=== PATIENT | female | born 1960 | race Caucasian/White ===

== ENCOUNTER → 2016-04-13 | Outpatient (CLI) | payer BC ==
--- NOTE | 2016-04-13 15:10 | XR ---
EXAMINATION TYPE: XR shoulder complete BILAT DATE OF EXAM: 04/13/2016 12:01 PM COMPARISON: NONE HISTORY: Pain TECHNIQUE: Bilateral Shoulders examined in 3 views each. FINDINGS: The humeral head articulates with the glenoid. The acromio-clavicular junction is normal. No acute fractures or dislocations are evident. A follow up study can be performed 7-10 days from acute trauma for continued pain. IMPRESSION: 1. Normal bilateral shoulders
--- NOTE | 2016-04-13 15:13 | XR ---
EXAMINATION TYPE: XR Hip Bilateral and AP pelvis DATE OF EXAM: 04/13/2016 12:01 PM COMPARISON: NONE HISTORY: Bilateral hip pain TECHNIQUE: AP pelvis supplemented with bilateral hips. 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 The femoral head articulates with the acetabulum . Joint spaces are preserved. There is some acetabular spurring on the left. This appears to have a smoothly marginated fragment di stally. Old fracture is not excluded on the left. IMPRESSION: 1. May be an old acetabular spur fracture on the left. No acute osseous abnormality is evident. 2. CAM deformity right hip
== END ==
LOC: RADXRMAIN 11:21
PROVIDERS: ATTEND Family Medicine
DX: M25.519 Pain in unspecified shoulder (principal); M21.952 Unspecified acquired deformity of left thigh; M21.951 Unspecified acquired deformity of right thigh
CPT/HCPCS: 73521

== ENCOUNTER → 2016-04-15 | Outpatient (CLI) | payer BC ==
--- NOTE | 2016-04-15 15:57 | XR ---
EXAMINATION TYPE: XR knee limited LT DATE OF EXAM: 04/15/2016 3:43 PM COMPARISON: NONE TECHNIQUE: Two view submitted HISTORY: Post op FINDINGS: Postsurgical change appears in alignment. Small suprapatellar bursal fluid collection noted. Mild art hropathy. IMPRESSION: 1. Mild arthropathy.
== END ==
LOC: RADXRMAIN 15:24
PROVIDERS: ATTEND Family Medicine
DX: M17.12 Unilateral primary osteoarthritis, left knee (principal)

== ENCOUNTER → 2017-11-14 | Outpatient (CLI) | payer BC ==
--- NOTE | 2017-11-15 13:35 | CT ---
EXAMINATION TYPE: CT abdomen pelvis wo con DATE OF EXAM: 11/14/2017 COMPARISON: None HISTORY: Hematuria, bilateral flank pain and kidney infection CT DLP: 619.1 mGycm Automated exposure control for dose reduction was used. TECHNIQUE: Helical acquisition of images was performed from the lung bases through the pelvis. FINDINGS: LUNG BASES: No significant abnormality is appreciated. LIVER/GB: Unenhanced morphology is unremarkable. No cholelithiasis. PANCREAS: No ductal dilatation. SPLEEN: No significant abnormality is seen. ADRENALS: There is slight thickening of the left adrenal gland without focal nodularity. This maintai ns a normal adreniform shape and therefore likely relates to adrenal gland hyperplasia. KIDNEYS: There is no evidence of nephrolithiasis or hydronephrosis. No perinephric fluid collection o r perinephric fat stranding. No ureteral dilatation. No ureteral calculi or urinary bladder calculi. The urinary bladder displays circumferential urinary bladder wall thickening but is incompletely dist ended. Therefore this finding could relate to cystitis, neoplasm, or simply relate to incomplete dist ention. Correlate with urinalysis. FREE AIR: No free air is visualized ADENOPATHY: No greater than 1 cm short axis lymph node is seen within the abdomen or pelvis. REPRODUCTIVE ORGANS: No significant abnormality is seen OSSEOUS STRUCTURES: There are mild degenerative changes of the spine and femoral acetabular joints BOWEL: No large or small bowel dilatation. Appendix is air-filled and within normal limits. Few colo anna marie diverticula are noted at the hepatic and splenic flexures. No pericolonic fat stranding. OTHER: Mild atherosclerosis is seen of the abdominal aorta and its branches. IMPRESSION: 1. NO NEPHROLITHIASIS, HYDRONEPHROSIS OR PERINEPHRIC FLUID COLLECTION TO SUGGEST ABSCESS. 2. CIRCUMFERENTIAL URINARY BLADDER WALL THICKENING THAT COULD RELATE TO CYSTITIS, NEOPLASM, OR MORE L IKELY INCOMPLETE DISTENTION. GIVEN HEMATURIA IF THERE IS FURTHER CONCERN CT CYSTOGRAM OR DIRECT VISUA LIZATION COULD BE PERFORMED.
== END | disposition home or self-care (01) ==
LOC: RADCTMAIN 15:18
PROVIDERS: ATTEND Family Medicine
DX: R31.9 Hematuria, unspecified (principal); N32.89 Other specified disorders of bladder
CPT/HCPCS: 74176

== ENCOUNTER 2018-02-02 10:46 | Emergency (ER) | payer BC ==
[2018-02-02] MEDS ORDERED: HYDROmorphone 1 MG/ML 1 ML SYRINGE IVP STA (11:12)
[2018-02-02] MEDS ORDERED: SODIUM CHLORIDE 0.9% 1,000 ML IV STA (11:12)
[2018-02-02] MEDS ORDERED: ONDANSETRON 4 MG/2 ML VIAL IVP STA (11:12)
[2018-02-02 11:59] LABS: Appearance,Urine Clear (Clear); Bacteria,Urine Moderate /hpf; Bilirubin,Urine Negative (Negative); Blood,Urine Moderate (Negative); Color,Urine Light Yellow; Glucose,Urine (UA) Negative (Negative); Ketones,Urine Negative (Negative); Leukocyte Esterase,Urine Negative (Negative); Mucus,Urine Rare /hpf; Nitrite,Urine Negative (Negative); Protein,Urine Negative (Negative); RBC,Urine 6 /hpf (0-5); Specific Gravity,Urine 1.005 (1.001-1.035); Squamous Epithelial Cell,Urine <1 /hpf (0-4); Urobilinogen,Urine <2.0 mg/dL (<2.0)
[2018-02-02 12:01] LABS: Basophils % (A) 0 %; Eosinophils # (A) 0.1 k/uL (0-0.7); Eosinophils % (A) 1 %; HCT 39.6 % (34.0-46.0); HGB 13.6 gm/dL (11.4-16.0); Lymphocytes # (A) 2.2 k/uL (1.0-4.8); Lymphocytes % (A) 32 %; MCHC 34.5 g/dL (31.0-37.0); MCV 89.8 fL (80.0-100.0); Mean Platelet Volume 6.7; Monocytes # (A) 0.4 k/uL (0-1.0); Monocytes % (A) 5 %; Neutrophils # (A) 4.2 k/uL (1.3-7.7); Neutrophils % (A) 60 %; Platelet Count 302 k/uL (150-450); RBC 4.41 m/uL (3.80-5.40); RDW 12.8 % (11.5-15.5)
[2018-02-02 12:06] LABS: Albumin 4.3 g/dL (3.5-5.0); Calcium 10.1 mg/dL (8.4-10.2); Potassium 3.2 mmol/L (3.5-5.1); Total Bilirubin 0.6 mg/dL (0.2-1.3); Total Protein 7.1 g/dL (6.3-8.2)
[2018-02-02 12:16] LABS: Creatine Kinase 58 U/L (30-135)
--- NOTE | 2018-02-02 12:18 | ED ---
General Adult HPI - General Chief complaint: Abdominal Pain Stated complaint: Abd Pain Time Seen by Provider: 02/02/18 10:57 Source: patient, RN notes reviewed Mode of arrival: ambulatory Limitations: no limitations - History of Present Illness Initial comments: Patient 57-year-old female presented to the emergency room today with a chief complaint of abdominal pain over the last 3 months. Patient does admit that she saw her family physician today was advised coming here to the emergency room for further evaluation. Patient does admit that the pain is a loading type sensation that she feels in the upper abdomen. States worse after she eats. She does admit to symptoms of nausea vomiting diarrhea. Patient denies any other complaints or symptoms. Patient denies any recent fever, chills, shortness of breath, chest pain, numbness or tingling, dysuria or hematuria, constipation, headaches or visual changes, or any other complaints. - Related Data Home Medications Medication Instructions Recorded Confirmed Aspirin 325 mg PO DAILY 12/26/15 12/26/15 Celecoxib [CeleBREX] 200 mg PO BID 12/26/15 12/26/15 HYDROcodone/APAP 5-325MG [[place] 1 tab PO TID 12/26/15 12/26/15 5-325] Hydrochlorothiazide [Hydrodiuril] 25 mg PO DAILY 12/26/15 12/26/15 LORazepam [Ativan] 0.5 mg PO TID PRN 12/26/15 12/26/15 Pantoprazole Sodium [Protonix] 40 mg PO DAILY 12/26/15 12/26/15 Previous Rx's Medication Instructions Recorded Omeprazole 20 mg PO DAILY #20 capsule. 02/02/18 Ondansetron Odt [Zofran ODT] 4 mg PO Q8HR PRN #20 tab 02/02/18 Allergies Allergy/AdvReac Type Severity Reaction Status Date / Time No Known Allergies Allergy Verified 02/02/18 10:50 Review of Systems ROS Statement: Those systems with pertinent positive or pertinent negative responses have been documented in the HPI. ROS Other: All systems not noted in ROS Statement are negative. Past Medical History Past Medical History: Hypertension Additional Past Medical History / Comment(s): chronic hip pain History of Any Multi-Drug Resistant Organisms: None Reported Past Surgical History: No Surgical Hx Reported Past Psychological History: Anxiety Smoking Status: Current every day smoker Past Alcohol Use History: None Reported Past Drug Use History: None Reported General Exam - General Exam Comments Initial Comments: General: The patient is awake and alert, in no distress, and does not appear acutely ill. Eye: There is normal conjunctiva bilaterally. No signs of icterus. Ears, nose, mouth and throat: There are moist mucous membranes and no oral lesions. Neck: The neck is supple, there is no tenderness or JVD. Cardiovascular: There is a regular rate and rhythm. No murmur, rub or gallop is appreciated. Respiratory: Lungs are clear to auscultation, respirations are non-labored, breath sounds are equal. No wheezes, stridor, rales, or rhonchi. Gastrointestinal: Abdomen soft on palpation. Patient does have tenderness both the left and right upper quadrants along with epigastric. No rebound, guarding or CVA tenderness. Musculoskeletal: Normal ROM, no tenderness. . Neurological: A&O x 3. CN II-XII intact, There are no obvious motor or sensory deficits. Coordination appears grossly intact. Speech is normal. Skin: Skin is warm and dry and no rashes or lesions are noted. Psychiatric: Cooperative, appropriate mood & affect, normal judgment. Limitations: no limitations Course Vital Signs 02/02/18 02/02/18 10:48 11:50 Temperature 98.1 F Pulse Rate 78 64 Respiratory 20 20 Rate Blood Pressure 164/70 134/65 O2 Sat by Pulse 97 96 Oximetry Medical Decision Making - Medical Decision Making Patient reexamined at this time shows no signs of distress is resting comfortably. Her labs been reviewed that showed a potassium 3.2. Patient given potassium by mouth here in the emergency room. Patient's EKGs been reviewed shows normal sinus rhythm. No acute abnormality. Patient remained blood work reviewed. Liver enzymes and alk phos are negative. Patient's ultrasound reviewed does show Moderate hepatic steatosis. Shows positive Thomas sign on ultrasound no cholelithiasis or acute cholecystitis. Common bile duct is 5.7 up her limits of normal. Case discussed in detail with attending physician Dr. Leon. Patient is resting over at this time doing well. Patient will be discharged home with Zofran, omeprazole for symptoms and advised following up with the family doctor over the next 2 days. Also given on -call GI. Advised return if symptoms increase or worsen or for new concerns. - Lab Data Result diagrams: 02/02/18 11:40 12/24/18 11:40 Lab Results 02/02/18 02/02/18 02/02/18 Range/Units 11:40 11:40 11:40 WBC 7.0 (3.8-10.6) k/uL RBC 4.41 (3.80-5.40) m/uL Hgb 13.6 (11.4-16.0) gm/dL Hct 39.6 (34.0-46.0) % MCV 89.8 (80.0-100.0) fL MCH 31.0 (25.0-35.0) pg MCHC 34.5 (31.0-37.0) g/dL RDW 12.8 (11.5-15.5) % Plt Count 302 (150-450) k/uL Neutrophils % 60 % Lymphocytes % 32 % Monocytes % 5 % Eosinophils % 1 % Basophils % 0 % Neutrophils # 4.2 (1.3-7.7) k/uL Lymphocytes # 2.2 (1.0-4.8) k/uL Monocytes # 0.4 (0-1.0) k/uL Eosinophils # 0.1 (0-0.7) k/uL Basophils # 0.0 (0-0.2) k/uL PT (9.0-12.0) sec INR (<1.2) APTT (22.0-30.0) sec Sodium 138 (137-145) mmol/L Potassium 3.2 L (3.5-5.1) mmol/L Chloride 98 (98-107) mmol/L Carbon Dioxide 32 H (22-30) mmol/L Anion Gap 8 mmol/L BUN 11 (7-17) mg/dL Creatinine 0.85 (0.52-1.04) mg/dL Est GFR (CKD-EPI)AfAm 88 (>60 ml/min/1.73 sqM) Est GFR (CKD-EPI)NonAf 76 (>60 ml/min/1.73 sqM) Glucose 106 H (74-99) mg/dL Calcium 10.1 (8.4-10.2) mg/dL Total Bilirubin 0.6 (0.2-1.3) mg/dL AST 13 L (14-36) U/L ALT 24 (9-52) U/L Alkaline Phosphatase 82 (38-126) U/L Total Creatine Kinase 58 (30-135) U/L CK-MB (CK-2) 0.3 (0.0-2.4) ng/mL CK-MB (CK-2) Rel Index 0.5 Troponin I <0.012 (0.000-0.034) ng/mL Total Protein 7.1 (6.3-8.2) g/dL Albumin 4.3 (3.5-5.0) g/dL Amylase 56 (30-110) U/L Lipase 56 (23-300) U/L Urine Color Urine Appearance (Clear) Urine pH (5.0-8.0) Ur Specific [place] (1.001-1.035) Urine Protein (Negative) Urine Glucose (UA) (Negative) Urine Ketones (Negative) Urine Blood (Negative) Urine Nitrite (Negative) Urine Bilirubin (Negative) Urine Urobilinogen (<2.0) mg/dL Ur Leukocyte Esterase (Negative) Urine RBC (0-5) /hpf Urine WBC (0-5) /hpf Ur Squamous Epith Cells (0-4) /hpf Urine Bacteria (None) /hpf Urine Mucus (None) /hpf 02/02/18 02/02/18 Range/Units 11:40 11:40 WBC (3.8-10.6) k/uL RBC (3.80-5.40) m/uL Hgb (11.4-16.0) gm/dL Hct (34.0-46.0) % MCV (80.0-100.0) fL MCH (25.0-35.0) pg MCHC (31.0-37.0) g/dL RDW (11.5-15.5) % Plt Count (150-450) k/uL Neutrophils % % Lymphocytes % % Monocytes % % Eosinophils % % Basophils % % Neutrophils # (1.3-7.7) k/uL Lymphocytes # (1.0-4.8) k/uL Monocytes # (0-1.0) k/uL Eosinophils # (0-0.7) k/uL Basophils # (0-0.2) k/uL PT 10.5 (9.0-12.0) sec INR 1.0 (<1.2) APTT 27.5 (22.0-30.0) sec Sodium (137-145) mmol/L Potassium (3.5-5.1) mmol/L Chloride (98-107) mmol/L Carbon Dioxide (22-30) mmol/L Anion Gap mmol/L BUN (7-17) mg/dL Creatinine (0.52-1.04) mg/dL Est GFR (CKD-EPI)AfAm (>60 ml/min/1.73 sqM) Est GFR (CKD-EPI)NonAf (>60 ml/min/1.73 sqM) Glucose (74-99) mg/dL Calcium (8.4-10.2) mg/dL Total Bilirubin (0.2-1.3) mg/dL AST (14-36) U/L ALT (9-52) U/L Alkaline Phosphatase (38-126) U/L Total Creatine Kinase (30-135) U/L CK-MB (CK-2) (0.0-2.4) ng/mL CK-MB (CK-2) Rel Index Troponin I (0.000-0.034) ng/mL Total Protein (6.3-8.2) g/dL Albumin (3.5-5.0) g/dL Amylase (30-110) U/L Lipase (23-300) U/L Urine Color Light Yellow Urine Appearance Clear (Clear) Urine pH 7.0 (5.0-8.0) Ur Specific [place] 1.005 (1.001-1.035) Urine Protein Negative (Negative) Urine Glucose (UA) Negative (Negative) Urine Ketones Negative (Negative) Urine Blood Moderate H (Negative) Urine Nitrite Negative (Negative) Urine Bilirubin Negative (Negative) Urine Urobilinogen <2.0 (<2.0) mg/dL Ur Leukocyte Esterase Negative (Negative) Urine RBC 6 H (0-5) /hpf Urine WBC <1 (0-5) /hpf Ur Squamous Epith Cells <1 (0-4) /hpf Urine Bacteria Moderate H (None) /hpf Urine Mucus Rare H (None) /hpf Disposition Clinical Impression: Abdominal pain Disposition: HOME SELF-CARE Condition: Good Instructions: Abdominal Pain (ED) Additional Instructions: Please use medication as discussed. Please follow-up with GI/family doctor in the next 2 days of symptoms have not improved. Please return to emergency room if the symptoms increase or worsen or for any other concerns. Prescriptions: Omeprazole 20 mg PO DAILY #20 capsule. Ondansetron Odt [Zofran ODT] 4 mg PO Q8HR PRN #20 tab PRN Reason: Nausea Is patient prescribed a controlled substance at d/c from ED?: No Referrals: Michael Marin MD [Primary Care Provider] - 1-2 days Nevaeh Rogers MD [STAFF PHYSICIAN] - 1-2 days Time of Disposition: 13:18
[2018-02-02 12:26] LABS: Creatine Kinase MB 0.3 ng/mL (0.0-2.4)
[2018-02-02 12:28] LABS: Partial Thromboplastin Time 27.5 sec (22.0-30.0); Prothrombin Time 10.5 sec (9.0-12.0)
[2018-02-02 12:30] LABS: Troponin I <0.012 ng/mL (0.000-0.034)
--- NOTE | 2018-02-02 12:49 | US ---
EXAMINATION TYPE: US abdomen limited DATE OF EXAM: 02/02/2018 COMPARISON: 11/14/2017 CLINICAL HISTORY: 57-year-old female Pain. Epigastric pain, bloating TECHNIQUE: Multiple sonographic images of the right upper quadrant are obtained. FINDINGS: EXAM MEASUREMENTS: Liver Length: 14.8 cm Gallbladder Wall: 0.2 cm CBD: 5.7 mm Right Kidney: 9.6 x 4.8 x 4.6 cm Pancreas: Most of the pancreatic body is visualized and shows no gross abnormality. The remainder is obscured due to shadowing from bowel gas. Liver: Echogenic and attenuating. This secondarily limits assessment for focal lesion. Gallbladder: No abnormal distention, wall thickening, pericholecystic fluid, or shadowing calculi. Evidence for sonographic Thomas's sign: Yes CBD: Upper limits of normal Right Kidney: No hydronephrosis. IMPRESSION: 1. At least moderate hepatic steatosis. Correlate with LFTs, lipid profile, and patient risk factors. 2. Positive sonographic Thomas's sign but without ancillary findings of cholelithiasis or acute dario cystitis. This may reflect referred pain. If further imaging evaluation of the gallbladder is desired , HIDA scan with ejection fraction can be performed. 3. Bile duct at the upper limits of normal in caliber at 5.7 mm. This may be normal for the patient. Consider correlating with alkaline phosphatase and bilirubin levels.
[2018-02-02] MEDS ORDERED: POTASSIUM CHLORIDE ER 20 MEQ TAB.ER PO STA (13:11)
[2018-02-02 13:25] VITALS: BP 148/73; PULSE 71; RESP 16; TEMP 98.2
== END 2018-02-02 13:25 | disposition home or self-care (01) ==
LOC: EC 10:46
DX: K76.0 Fatty (change of) liver, not elsewhere classified (principal); R11.2 Nausea with vomiting, unspecified; R19.7 Diarrhea, unspecified; I10 Essential (primary) hypertension; F17.200 Nicotine dependence, unspecified, uncomplicated; Z79.82 Long term (current) use of aspirin; Z79.1 Long term (current) use of non-steroidal anti-inflammatories (NSAID); Z79.891 Long term (current) use of opiate analgesic; Z79.899 Other long term (current) drug therapy
CPT/HCPCS: 36415; 93005; 80053; 82150; 82550; 82553; 83690; 84484; 85025; 85610; 85730; 81001; 76705; 99284; 96374; 96375; 96361 ×2; J2405; J1170

== ENCOUNTER → 2019-07-30 | Outpatient (CLI) | payer BC ==
--- NOTE | 2019-07-30 10:05 | US ---
EXAMINATION TYPE: US venous doppler duplex LE RT DATE OF EXAM: 07/30/2019 9:47 AM COMPARISON: NONE CLINICAL HISTORY: M25.561 PAIN RT KNEE, I80.9 PHLEBITIS AND THROMBOPHLEBITIS. Pain SIDE PERFORMED: Right TECHNIQUE: The lower extremity deep venous system is examined utilizing real time linear array sonog cristian with graded compression, doppler sonography and color-flow sonography. VESSELS IMAGED: External Iliac Vein (EIV) Common Femoral Vein Deep Femoral Vein Greater Saphenous Vein * Femoral Vein Popliteal Vein Small Saphenous Vein * Proximal Calf Veins (* superficial vessels) Right Leg: Negative for DVT IMPRESSION: 1. Right lower extremity ultrasound negative for deep venous thrombosis.
== END | disposition home or self-care (01) ==
LOC: RADUSWWP 09:33
PROVIDERS: ATTEND Orthopaedic Surgery
DX: M25.561 Pain in right knee (principal); M17.11 Unilateral primary osteoarthritis, right knee; M79.604 Pain in right leg; I80.9 Phlebitis and thrombophlebitis of unspecified site

== ENCOUNTER 2019-09-17 16:33 | Inpatient (IN) | payer BC ==
[2019-09-17] MEDS ORDERED: SODIUM CHLORIDE 0.9% 1,000 ML IV STA ×2 (16:50→18:49)
--- NOTE | 2019-09-17 16:52 | ED ---
Abdominal Pain HPI - General Chief Complaint: Abdominal Pain Stated Complaint: needs ultasound of gallbladder Time Seen by Provider: 09/17/19 16:48 Source: patient Mode of arrival: ambulatory Limitations: no limitations - Related Data Home Medications Medication Instructions Recorded Confirmed Aspirin 325 mg PO DAILY 12/26/15 12/26/15 Celecoxib [CeleBREX] 200 mg PO BID 12/26/15 12/26/15 HYDROcodone/APAP 5-325MG [[place] 1 tab PO TID 12/26/15 12/26/15 5-325] LORazepam [Ativan] 0.5 mg PO TID PRN 12/26/15 12/26/15 Pantoprazole Sodium [Protonix] 40 mg PO DAILY 12/26/15 12/26/15 hydroCHLOROthiazide [Hydrodiuril] 25 mg PO DAILY 12/26/15 12/26/15 Previous Rx's Medication Instructions Recorded Omeprazole 20 mg PO DAILY #20 capsule. 02/02/18 Ondansetron Odt [Zofran ODT] 4 mg PO Q8HR PRN #20 tab 02/02/18 Allergies Allergy/AdvReac Type Severity Reaction Status Date / Time No Known Allergies Allergy Verified 09/17/19 16:47 Review of Systems ROS Statement: Those systems with pertinent positive or pertinent negative responses have been documented in the HPI. ROS Other: All systems not noted in ROS Statement are negative. Past Medical History Past Medical History: Hypertension Additional Past Medical History / Comment(s): chronic hip pain History of Any Multi-Drug Resistant Organisms: None Reported Past Surgical History: No Surgical Hx Reported Past Psychological History: Anxiety Past Alcohol Use History: None Reported Past Drug Use History: None Reported General Exam Limitations: no limitations Course Vital Signs 09/17/19 16:45 Temperature 98.3 F Pulse Rate 85 Respiratory 16 Rate Blood Pressure 158/79 O2 Sat by Pulse 97 Oximetry Medical Decision Making - Lab Data Result diagrams: 09/17/19 17:45 09/17/19 17:45 Lab Results 09/17/19 09/17/19 09/17/19 Range/Units 17:45 17:45 17:45 WBC 8.5 (3.8-10.6) k/uL RBC 4.30 (3.80-5.40) m/uL Hgb 12.5 (11.4-16.0) gm/dL Hct 37.5 (34.0-46.0) % MCV 87.0 (80.0-100.0) fL MCH 29.1 (25.0-35.0) pg MCHC 33.5 (31.0-37.0) g/dL RDW 12.7 (11.5-15.5) % Plt Count 326 (150-450) k/uL Neutrophils % 55 % Lymphocytes % 35 % Monocytes % 7 % Eosinophils % 1 % Basophils % 1 % Neutrophils # 4.6 (1.3-7.7) k/uL Lymphocytes # 3.0 (1.0-4.8) k/uL Monocytes # 0.6 (0-1.0) k/uL Eosinophils # 0.1 (0-0.7) k/uL Basophils # 0.1 (0-0.2) k/uL Sodium 126 L (137-145) mmol/L Potassium 2.7 L* (3.5-5.1) mmol/L Chloride 90 L (98-107) mmol/L Carbon Dioxide 28 (22-30) mmol/L Anion Gap 8 mmol/L BUN 4 L (7-17) mg/dL Creatinine 0.64 (0.52-1.04) mg/dL Est GFR (CKD-EPI)AfAm >90 (>60 ml/min/1.73 sqM) Est GFR (CKD-EPI)NonAf >90 (>60 ml/min/1.73 sqM) Glucose 92 (74-99) mg/dL Plasma Lactic Acid [place] 0.7 (0.7-2.0) mmol/L Calcium 9.4 (8.4-10.2) mg/dL Total Bilirubin 0.8 (0.2-1.3) mg/dL AST 22 (14-36) U/L ALT 22 (4-34) U/L Alkaline Phosphatase 77 (38-126) U/L Total Protein 6.2 L (6.3-8.2) g/dL Albumin 4.1 (3.5-5.0) g/dL Amylase 38 (30-110) U/L Lipase 41 (23-300) U/L Disposition Clinical Impression: Abdominal pain, Hyponatremia, Hypokalemia Disposition: ADMITTED IP TO THIS [facility] Condition: Good Is patient prescribed a controlled substance at d/c from ED?: No Referrals: Michael Marin MD [Primary Care Provider] - 1-2 days
[2019-09-17 17:55] LABS: Basophils # (A) 0.1 k/uL (0-0.2); Basophils % (A) 1 %; Eosinophils # (A) 0.1 k/uL (0-0.7); Eosinophils % (A) 1 %; HCT 37.5 % (34.0-46.0); HGB 12.5 gm/dL (11.4-16.0); Lymphocytes % (A) 35 %; MCH 29.1 pg (25.0-35.0); MCHC 33.5 g/dL (31.0-37.0); Mean Platelet Volume 7.1; Monocytes # (A) 0.6 k/uL (0-1.0); Monocytes % (A) 7 %; Neutrophils # (A) 4.6 k/uL (1.3-7.7); Neutrophils % (A) 55 %; Platelet Count 326 k/uL (150-450); RDW 12.7 % (11.5-15.5); WBC 8.5 k/uL (3.8-10.6)
[2019-09-17 18:05] LABS: ALT 22 U/L (4-34); AST 22 U/L (14-36); African American GFR (CKD) >90 (>60 ml/min/1.73 sqM); Albumin 4.1 g/dL (3.5-5.0); Alkaline Phosphatase 77 U/L (38-126); Amylase 38 U/L (30-110); Anion Gap 8 mmol/L; Blood Urea Nitrogen 4 mg/dL (7-17); Calcium 9.4 mg/dL (8.4-10.2); Carbon Dioxide 28 mmol/L (22-30); Chloride 90 mmol/L (98-107); Glucose 92 mg/dL (74-99); Non-African American GFR(CKD) >90 (>60 ml/min/1.73 sqM); Sodium 126 mmol/L (137-145); Total Bilirubin 0.8 mg/dL (0.2-1.3); Total Protein 6.2 g/dL (6.3-8.2)
[2019-09-17 18:17] LABS: Potassium 2.7 mmol/L (3.5-5.1)
--- NOTE | 2019-09-17 18:31 | US ---
EXAMINATION TYPE: US gallbladder DATE OF EXAM: 09/17/2019 COMPARISON: 02/02/2018 CLINICAL HISTORY: pain. abd pain, second episdoe since April EXAM MEASUREMENTS: Liver Length: 14.8 cm Gallbladder Wall: 0.2 cm CBD: 0.8 cm Right Kidney: 10.0 x 4.7 x 5.1 cm Pancreas: wnl Liver: intercostal imaging due to extensive bowel gas Gallbladder: no obvious stones seen Evidence for sonographic Thomas's sign: no CBD: upper limits of normal Right Kidney: wnl IMPRESSION: No gallstones or dilated ducts. Intrahepatic bile ducts normal. The common bile duct is large and cou ld relate to some gallbladder dysfunction. Overall no adverse change compared to old exam.
[2019-09-17] MEDS ORDERED: ONDANSETRON 4 MG/2 ML VIAL IVP PRN (18:49)
[2019-09-17] MEDS ORDERED: KETOROLAC 30 MG/ML 1 ML VIAL IVP STA (18:49)
[2019-09-17] MEDS ORDERED: ONDANSETRON 4 MG/2 ML VIAL IVP STA (18:49)
[2019-09-17] MEDS ORDERED: MORPHINE SULFATE 4 MG/ML SYRINGE IVP STA (18:49)
[2019-09-17] MEDS ORDERED: MORPHINE SULFATE 4 MG/ML SYRINGE IVP PRN (18:49)
[2019-09-17] MEDS ORDERED: POTASSIUM BICARBONATE/CIT AC 20 MEQ TABLET.EFF PO ONE (18:49)
[2019-09-17] MEDS ORDERED: POTASSIUM CHLORIDE 20 MEQ in WATER FOR INJECTION 1 100ML.BAG IVPB STA (18:49)
[2019-09-17] MEDS ORDERED: PANTOPRAZOLE 40 MG/10 ML VIAL IVP STA (18:49)
--- NOTE | 2019-09-17 19:24 | CT ---
EXAMINATION TYPE: CT abdomen pelvis w con DATE OF EXAM: 09/17/2019 COMPARISON: 11/14/2017 HISTORY: Abdominal pain CT DLP: 1169.1 mGycm Automated exposure control for dose reduction was used. CONTRAST: Performed with IV Contrast, patient injected with 100 mL of Isovue 300. Lung bases are clear. There is no pleural effusion. Heart size is normal. There is no pericardial eff usion. Liver spleen pancreas gallbladder appear normal. Bile ducts are not dilated. Stomach appears normal. There is no adrenal mass. Kidneys show satisfactory contrast opacification. There is no hydronephrosi s. Ureters are not dilated. There is no retroperitoneal adenopathy. Abdominal aorta is atheromatous. Appendix is posterior and appears normal. Bladder distends smoothly. There is no inguinal hernia. The re is no free fluid in the pelvis. Uterus is anteverted. Lumbar spine is intact. There is no compress ion fracture. Posterior elements are intact. Bony pelvis is intact. There is mild hypertrophic facet arthropathy in the lower lumbar spine. Hip joints appear normal. There is no mesenteric edema. There is no ascites or free air. There is no bowel obstruction. IMPRESSION: Negative CT scan of the abdomen and pelvis. Normal appendix. I do not see a cause for abdominal pain. There are scattered sigmoid diverticula without diverticulitis. No adverse change compared to old exam.
[2019-09-17] MEDS ORDERED: LORazepam 0.5 MG TAB PO PRN (21:40)
[2019-09-17] MEDS: SODIUM CHLORIDE 0.9% 1,000 ML IV SCH (21:56)
[2019-09-18 07:19] LABS: HCT 36.8 % (34.0-46.0); HGB 12.4 gm/dL (11.4-16.0); MCH 30.6 pg (25.0-35.0); MCHC 33.7 g/dL (31.0-37.0); MCV 90.6 fL (80.0-100.0); Platelet Count 324 k/uL (150-450); RBC 4.07 m/uL (3.80-5.40); RDW 12.9 % (11.5-15.5); WBC 6.4 k/uL (3.8-10.6)
[2019-09-18] MEDS ORDERED: MELOXICAM 7.5 MG TAB PO SCH (09:00)
[2019-09-18] MEDS ORDERED: PANTOPRAZOLE 40 MG TABLET PO SCH (09:00)
[2019-09-18] MEDS: SODIUM CHLORIDE 0.9% 1,000 ML IV SCH (09:05)
[2019-09-18 09:42] LABS: African American GFR (CKD) >90 (>60 ml/min/1.73 sqM); Anion Gap 6 mmol/L; Blood Urea Nitrogen 7 mg/dL (7-17); Calcium 8.8 mg/dL (8.4-10.2); Carbon Dioxide 29 mmol/L (22-30); Chloride 98 mmol/L (98-107); Glucose 113 mg/dL (74-99); Non-African American GFR(CKD) 84 (>60 ml/min/1.73 sqM); Potassium 3.9 mmol/L (3.5-5.1); Sodium 133 mmol/L (137-145)
[2019-09-18 09:46] VITALS: RESP 17; TEMP 98.1
[2019-09-18 12:46] VITALS: BP 112/68; PULSE 62
--- NOTE | 2019-09-18 13:35 | P.HPIM ---
History of Present Illness Patient is a 59-year-old female was sent in from PCPs office with concerns of cholelithiasis patient was comparing of right upper quadrant abdominal pain along with nausea. Patient did not vomit. Patient pain is mostly burning sens ation and and sharp in nature. They had abdominal pain completely resolved at this time. Patient is on Protonix twice a day at home. Patient denied any hiatal hernia history. Patient underwent workup with ultrasound of the gallbladder as well as CT of the abdomen both of which did not show any s ignificant abnormality. But patient is found to be severely hyponatremic and hypokalemic. Patient blood pressure is low normal as well and the patient is on HCl for blood pressure. Patient was given IV fluids and potassium was replaced and patient's electrolyte's were corrected. Her hyponatremia and hypokalemia secondary to hydrochlorothiazide which is being discontinued and patient will be discharged today Review of Systems REVIEW OF SYSTEMS: CONSTITUTIONAL: No fever, no malaise, no fatigue. HEENT: No recent visual problems or hearing problems. Denied any sore throat. CARDIOVASCULAR: No chest pain, orthopnea, PND, no palpitations, no syncope. PULMONARY: No shortness of breath, no cough, no hemoptysis. GASTROINTESTINAL: As mentioned in HPI NEUROLOGICAL: No headaches, no weakness, no numbness. HEMATOLOGICAL: Denies any bleeding or petechiae. GENITOURINARY: Denies any burning micturition, frequency, or urgency. MUSCULOSKELETAL/RHEUMATOLOGICAL: Denies any joint pain, swelling, or any muscle pain. ENDOCRINE: Denies any polyuria or polydipsia. The rest of the 14-point review of systems is negative. Past Medical History Past Medical History: Hypertension Additional Past Medical History / Comment(s): chronic hip pain History of Any Multi-Drug Resistant Organisms: None Reported Past Surgical History: No Surgical Hx Reported, Section, Tonsillectomy Past Anesthesia/Blood Transfusion Reactions: Postoperative Nausea & Vomiting (PONV) Past Psychological History: Anxiety Smoking Status: Current every day smoker Past Alcohol Use History: None Reported Past Drug Use History: None Reported Medications and Allergies Home Medications Medication Instructions Recorded Confirmed Type Celecoxib [CeleBREX] 200 mg PO BID 12/26/15 09/17/19 History Pantoprazole Sodium [Protonix] 40 mg PO BID 12/26/15 09/17/19 History Simethicone Chew [Mylicon Chew] 40 mg PO QID #90 chewable 09/18/19 Rx Allergies Allergy/AdvReac Type Severity Reaction Status Date / Time No Known Allergies Allergy Verified 09/17/19 19:32 Physical Exam Vitals: Vital Signs Temp Pulse Pulse Resp BP BP Pulse Ox 09/18/19 12:45 62 17 112/68 97 09/18/19 08:30 98.1 F 69 17 114/70 96 09/18/19 04:00 98.3 F 62 16 100/63 96 09/17/19 23:47 66 18 09/17/19 23:41 98.1 F 66 18 105/67 96 09/17/19 21:24 97.8 F 60 18 137/69 95 09/17/19 21:21 60 18 09/17/19 20:37 97.8 F 60 18 137/69 95 09/17/19 19:56 98.3 F 78 17 138/91 96 09/17/19 18:52 68 17 138/69 97 09/17/19 16:45 98.3 F 85 16 158/79 97 Intake and Output 09/17/19 09/18/19 09/18/19 22:59 06:59 14:59 Intake Total 240 240 Balance 240 240 Intake: Oral 240 240 Other: Voiding Method Toilet Toilet # Voids 2 3 Weight 87.09 kg 85.8 kg PHYSICAL EXAMINATION: GENERAL: The patient is alert and oriented x3, not in any acute distress. Well developed, well nourished. HEENT: Pupils are round and equally reacting to light. EOMI. No scleral icterus. No conjunctival pallor. Normocephalic, atraumatic. No pharyngeal erythema. No thyromegaly. CARDIOVASCULAR: S1 and S2 present. No murmurs, rubs, or gallops. PULMONARY: Chest is clear to auscultation, no wheezing or crackles. ABDOMEN: Soft, nontender, nondistended, normoactive bowel sounds. No palpable organomegaly. MUSCULOSKELETAL: No joint swelling or deformity. EXTREMITIES: No cyanosis, clubbing, or pedal edema. NEUROLOGICAL: Gross neurological examination did not reveal any focal deficits. SKIN: No rashes. Results CBC & Chem 7: 09/18/19 06:21 09/18/19 06:21 Labs: Abnormal Lab Results - Last 24 Hours (Table) 09/17/19 09/18/19 Range/Units 17:45 06:21 Sodium 126 L 133 L (137-145) mmol/L Potassium 2.7 L* (3.5-5.1) mmol/L Chloride 90 L (98-107) mmol/L BUN 4 L (7-17) mg/dL Glucose 113 H (74-99) mg/dL Total Protein 6.2 L (6.3-8.2) g/dL Thrombosis Risk Factor Assmnt - Choose All That Apply Any of the Below Risk Factors Present?: Yes Each Factor Represents 1 point: Age 41-60 years Other Risk Factors: No Other congenital or acquired thrombophilia - If yes, enter type in comment: No Thrombosis Risk Factor Assessment Total Risk Factor Score: 1 Thrombosis Risk Factor Assessment Level: Low Risk Assessment and Plan Plan: -Abdominal pain probably secondary to peptic is a disease or gastritis Patient is already on Protonix, will add simethicone. Patient will follow with Dr. Marin PCP as an outpatient. No evidence of cholelithiasis or cholecystitis at this time -Severe hyponatremia and hypokalemia: Secondary to hydrocodone thiazide patient blood pressure is low here and patient will not require any antidepressant medications but patient was asked to get a blood pressure machine and check the blood pressure 3 times a day and maintain blood pressure diary. -Frequent headaches: Patient may have migraine will benefit from further evaluation by neurology -Nicotine abuse: Counseling was provided -Anxiety disorder
--- NOTE | 2019-09-18 13:35 | P.DS ---
Providers Date of admission: 09/17/19 18:49 Attending physician: Austin Cleaning Primary care physician: Michael Marin Hospital Course: Please refer to my HPI for further details Patient Condition at Discharge: Good Plan - Discharge Summary Discharge Rx Participant: No New Discharge Prescriptions: New Simethicone Chew [Mylicon Chew] 40 mg PO QID #90 chewable Discontinued LORazepam [Ativan] 0.5 mg PO TID PRN PRN Reason: Anxiety hydroCHLOROthiazide [Hydrodiuril] 25 mg PO BID Aspirin 325 mg PO DAILY No Action Pantoprazole Sodium [Protonix] 40 mg PO BID Celecoxib [CeleBREX] 200 mg PO BID Discharge Medication List Celecoxib [CeleBREX] 200 mg PO BID 12/26/15 [History] Pantoprazole Sodium [Protonix] 40 mg PO BID 12/26/15 [History] Simethicone Chew [Mylicon Chew] 40 mg PO QID #90 chewable 09/18/19 [Rx] Follow up Appointment(s)/Referral(s): Michael Marin MD [Primary Care Provider] - 3 Days Patient Instructions/Handouts: Hyponatremia (DC), Hypokalemia (DC), Acute Abdominal Pain (DC) Discharge Disposition: HOME SELF-CARE
== END 2019-09-18 13:13 | disposition home or self-care (01) | DRG 384 ==
LOC: EC 16:33 → 3SCARD 18:49
PROVIDERS: ADMIT Hospitalist; ATTEND Hospitalist
DX: K27.9 Peptic ulcer, site unspecified, unspecified as acute or chronic, without hemorrhage or perforation (principal); E87.1 Hypo-osmolality and hyponatremia; K29.70 Gastritis, unspecified, without bleeding; E87.6 Hypokalemia; I10 Essential (primary) hypertension; G89.29 Other chronic pain; M25.559 Pain in unspecified hip; R51 Headache; F41.9 Anxiety disorder, unspecified; F17.200 Nicotine dependence, unspecified, uncomplicated; T50.2X5A Adverse effect of carbonic-anhydrase inhibitors, benzothiadiazides and other diuretics, initial encounter; Z79.82 Long term (current) use of aspirin; Z79.1 Long term (current) use of non-steroidal anti-inflammatories (NSAID); Z79.899 Other long term (current) drug therapy
CPT/HCPCS: 36415; 74177; 76705; 80048; 80053; 82150; 83605; 83690; 85025; 85027; 96361; 96374; 96375; 99285

== ENCOUNTER → 2021-01-29 | Outpatient (CLI) | payer BC ==
--- NOTE | 2021-01-30 11:56 | MM ---
Reason for exam: screening (asymptomatic). Last mammogram was performed 5 years and 3 months ago. History: Patient is postmenopausal and had first child at age 33. Physical Findings: A clinical breast exam by your physician is recommended on an annual basis and results should be correlated with mammographic findings. MG 3D Screening Mammo W/Cad Bilateral CC and MLO view(s) were taken. Prior study comparison: November 06, 2015, bilateral MG screening mammo w CAD. October 17, 2000, bilateral screening mammogram. The breast tissue is almost entirely fat. Finding: There are questionable indeterminate calcifications in the lower outer quadrant of the right breast. ASSESSMENT: Incomplete: need additional imaging evaluation, BI-RAD 0 RECOMMENDATION: Special view mammogram of the right breast. [facility] will attempt to contact patient to return for supplemental views.
== END | disposition home or self-care (01) ==
LOC: RADMAMWWP 14:23
PROVIDERS: ATTEND Family Medicine
DX: Z12.31 Encounter for screening mammogram for malignant neoplasm of breast (principal)
CPT/HCPCS: 77063; 77067

== ENCOUNTER → 2021-02-06 | Outpatient (CLI) | payer BC ==
--- NOTE | 2021-02-06 10:29 | MM ---
Reason for exam: additional evaluation requested from abnormal screening. Last mammogram was performed less than 1 month ago. History: Patient is postmenopausal and had first child at age 33. Physical Findings: Nurse did not find any significant physical abnormalities on exam. MG 3D Work Up W/Cad RT CC with magnification, LM with magnification, and LM view(s) were taken of the right breast. Prior study comparison: January 29, 2021, bilateral MG 3d screening mammo w/cad. November 06, 2015, bilateral MG screening mammo w CAD. There are scattered fibroglandular densities. 9 o'clock right breast calcifications are grouped and appear increased but may layer on lateral suggesting benign milk of calcium. 6 month follow up recommended. These results were verbally communicated with the patient and result sheet given to the patient on 02/06/21. ASSESSMENT: Probably benign, BI-RAD 3 RECOMMENDATION: Follow-up diagnostic mammogram of the right breast in 6 months.
== END | disposition home or self-care (01) ==
LOC: RADMAMWWP 08:10
PROVIDERS: ATTEND Family Medicine
DX: R92.8 Other abnormal and inconclusive findings on diagnostic imaging of breast (principal)
CPT/HCPCS: 77061; 77065

== ENCOUNTER → 2021-05-08 | Day surgery (SDC) | payer BC ==
[2021-05-03 16:25] VITALS: BMI 33.3
[~2021-05-08] MED LIST: LACTATED RINGERS 1,000 ML IV SCH; LIDOCAINE 1% INJ 10MG/ML (20 ML MDV) ONE; PROPOFOL 10 MG/ML 20 ML VIAL IV ONE
--- NOTE | 2021-05-08 07:52 | P.PCN ---
Date of Procedure: 05/08/21 Procedure(s) Performed: Brief history: Patient is a pleasant 61-year-old white female scheduled for an elective upper endoscopy as well as colonoscopy as a part of evaluation of GERD and prior history of colon polyps Procedure performed: Esophagogastroduodenoscopy with biopsy Colonoscopy Preoperative diagnosis: GERD/history of colon polyps Anesthesia: MAC Procedure: After informed consent was obtained from the patient was brought into the endoscopy unit and IV sedation was administered by anesthesia under continuous monitoring. Initially upper endoscopy was done. The Olympus GF 160 video endoscope was inserted inserted into the mouth and esophagus intubated without any difficulty and was gradually advanced into the stomach and duodenum and carefully examined. The bulb and second part of the duodenum appeared normal. The scope was then withdrawn into the stomach adequately insufflated with air and upon careful examination the antrum had mild gastritis and biopsies were done from this area. The body, cardia and fundus appeared normal. The scope was then withdrawn into the esophagus. The GE junction was located at 40 cm to the incisors. Small sliding type hiatal hernia noted. It appeared regular with no erythema erosions or ulcerations. Rest of the esophagus appeared normal. Patient tolerated the procedure well. At this time the patient continued to remain sedation. Initial digital rectal examination was normal. Olympus CF 160 video colonoscope was then inserted into the rectum and gradually advanced to the cecum without any difficulty. Careful examination was performed as the scope was gradually being withdrawn. The prep was excellent. The cecum, ascending colon, transverse colon, descending colon, sigmoid colon and rectum appeared normal. At her sigmoid diverticulosis. Retroflexion was performed in the rectum and no lesions were noted. Patient tolerated the procedure well. Impression: 1. Upper endoscopy revealed mild antral gastritis and small sliding type hiatal hernia 2. Colonoscopy reveals scattered sigmoid diverticulosis but no evidence of colorectal neoplasia Recommendations: Findings of this examination were discussed with the patient as well as her family. She was advised to follow with the biopsy results. She was advised to have a repeat colonoscopy in 5 years from now because of the prior history of colon polyps.
[2021-05-08 07:56] VITALS: RESP 17
[2021-05-08 08:10] VITALS: BP 158/85; PULSE 82
== END ==
LOC: ORWHC2ENDO 06:01
PROVIDERS: ATTEND Internal Medicine Gastroenterology
DX: Z12.11 Encounter for screening for malignant neoplasm of colon (principal); Z86.010 Personal history of colon polyps; K21.9 Gastro-esophageal reflux disease without esophagitis; K29.50 Unspecified chronic gastritis without bleeding; K44.9 Diaphragmatic hernia without obstruction or gangrene
CPT/HCPCS: 45378; 43239; 88305; J2001; J2704

== ENCOUNTER → 2021-08-22 | Outpatient (CLI) | payer BC ==
--- NOTE | 2021-08-22 09:15 | MM ---
Reason for Exam: Additional evaluation requested from prior study. Last screening mammogram was performed 7 month(s) ago. Patient History: Menarche at age 11. First Full-Term at age 33. Late child-bearing (after 30). Postmenopausal. Risk Values: Isabela 5 year model risk: 2.1%. NCI Lifetime model risk: 9.4%. Prior Study Comparison: 11/06/2015 Bilateral Screening Mammogram, [facility]. 01/29/2021 Bilateral Screening Mammogram, [facility]. 02/06/2021 Right Diagnostic Mammogram, [facility]. Tissue Density: Right: There are scattered fibroglandular densities. Findings: Analyzed By CAD. A few scattered and grouped benign-appearing round calcifications in the right breast are redemonstrated. Stable well-defined round mass in the right breast towards the axilla. Stable additional benign right axillary lymph nodes. No new distortion or new suspicious group of microcalcifications. Overall Assessment: Benign, BI-RAD 2 Management: Screening Mammogram of both breasts in 6 months. Back on schedule. Results were given to the patient verbally at the time of exam. Electronically signed and approved by: Marcus Cyr M.D.
== END | disposition home or self-care (01) ==
LOC: RADMAMWWP 08:49
PROVIDERS: ATTEND Family Medicine
DX: R92.8 Other abnormal and inconclusive findings on diagnostic imaging of breast (principal)
CPT/HCPCS: 77061; 77065

== ENCOUNTER → 2021-11-26 | Outpatient (CLI) | payer BC ==
--- NOTE | 2021-11-26 13:17 | CT ---
EXAMINATION TYPE: CT abdomen pelvis wo con DATE OF EXAM: 11/26/2021 HISTORY: right flank pain, hematuria CT DLP: 984 mGycm. Automated Exposure Control for Dose Reduction was Utilized. TECHNIQUE: CT scan of the abdomen and pelvis is performed without oral or IV contrast. COMPARISON: Prior CT abdomen and pelvis September 17, 2019 FINDINGS: Within the limitations of a non-contrast study, the following observations are made. LUNG BASES: No significant abnormality is appreciated. LIVER/GB: No significant abnormality is appreciated. PANCREAS: No significant abnormality is seen. SPLEEN: No significant abnormality is seen. ADRENALS: Low dense nodular thickening left adrenal gland consistent with benign lipid rich hyperplas ia axial image 38 redemonstrated. KIDNEYS: No renal stones or hydronephrosis is seen bilaterally. BOWEL: Few scattered diverticula in the left and sigmoid colon. No CT evidence for acute diverticulit is. No suspicious small or large bowel dilatation. Normal-appearing appendix from the cecum extends m edially. GENITAL ORGANS: Anteverted uterus project left of midline. Normal-sized ovaries. LYMPH NODES: No greater than 1cm abdominal or pelvic lymph nodes are appreciated. OSSEOUS STRUCTURES: Hypoplastic or small size transverse processes at the L4 level redemonstrated. Mu ltilevel facet arthropathy in the lower lumbar spine. OTHER: No significant additional abnormality is seen. IMPRESSION: No renal stones or hydronephrosis is seen bilaterally. Source of hematuria and right flan k pain not identified. If symptoms of hematuria persist further investigation with CT urogram would b e warranted.
--- NOTE | 2021-11-26 16:18 | XR ---
Right foot HISTORY: Pain and swelling 3 views the right foot correlated prior exam 02/24/2015 Bone mineralization is reduced. No evident fracture or dislocation. Some arthropathy changes present at the intertarsal joints, tarsometatarsal joints. Interval healing of the distal first digit, proxim al fifth digit fractures. There is a plantar calcaneal spur. Enthesophyte present at the insertion of the Achilles tendon. IMPRESSION: Low bone mineralization. Osteoarthritic changes and additional findings above.
== END | disposition home or self-care (01) ==
LOC: RADCTMAIN 12:24
PROVIDERS: ATTEND Family Medicine
DX: M79.671 Pain in right foot (principal); R10.9 Unspecified abdominal pain
CPT/HCPCS: 74176

== ENCOUNTER → 2022-01-17 | Outpatient (CLI) | payer BC ==
--- NOTE | 2022-01-18 13:06 | MR ---
EXAMINATION TYPE: MR brain wo/w con DATE OF EXAM: 01/17/2022 COMPARISON: Correlation CT brain 12/13/2021 HISTORY: 61-year-old female R51.9, unspecified Headaches. TECHNIQUE: Multiplanar, multisequence images of the brain and brainstem were acquired before and aft er administration of 7.5 mL IV Gadavist. Diffusion weighted imaging is performed. FINDINGS: No evidence for acute infarction, hemorrhage, mass, mass effect, midline shift, herniation, effacemen t of basal cisterns, or extra-axial fluid collection. The ventricles and sulci are age-appropriate. Mild age-related cerebral cortical volume loss. Major intracranial flow voids are intact. T2/FLAIR weighted sequences show mild to moderate scattered T2 bright white matter foci within the storey bcortical and deep white matter regions of both cerebral hemispheres. There is a partially empty sella. Otherwise, midline structures demonstrate normal morphology. The c raniocervical junction is normal. Post contrast images demonstrate no evidence of pathologic enhancement. Dural venous sinuses are pat ent. Small fluid in inferior left mastoid air cells. Mild mucosal thickening ethmoid air cells. Globes are intact. IMPRESSION: 1. Mild chronic burden of chronic small vessel ischemic disease. Also, mild age-related cerebral juli ical volume loss. Otherwise, no intracranial abnormality seen. 2. Small amount of fluid trapped in the inferior left mastoid air cells. Correlate for any mastoid pa in to exclude mastoiditis. 3. Mild chronic ethmoid sinus disease.
== END | disposition home or self-care (01) ==
LOC: RADMRIMAIN 10:25
PROVIDERS: ATTEND Family Medicine
DX: I67.82 Cerebral ischemia (principal); G31.1 Senile degeneration of brain, not elsewhere classified; J32.2 Chronic ethmoidal sinusitis
CPT/HCPCS: 70553; A9585

== ENCOUNTER → 2022-09-04 | Outpatient (CLI) | payer BC ==
--- NOTE | 2022-09-05 20:54 | MM ---
Reason for Exam: Screening (asymptomatic). Last mammogram was performed 1 year(s) and 7 month(s) ago. Patient History: Menarche at age 11. First Full-Term at age 33. Late child-bearing (after 30). Postmenopausal. Risk Values: Isabela 5 year model risk: 2.2%. NCI Lifetime model risk: 9.1%. Prior Study Comparison: 01/29/2021 Bilateral Screening Mammogram, [facility]. 02/06/2021 Right Diagnostic Mammogram, [facility]. 08/22/2021 Right MG 3D diag mammo w/cad RT, [facility]. Tissue Density: There are scattered fibroglandular densities. Findings: Analyzed By CAD. Chronic nodularity upper outer quadrant right breast. There is no suspicious group of microcalcifications or new suspicious mass in either breast. Overall Assessment: Benign, BI-RAD 2 Management: Screening Mammogram of both breasts in 1 year. . Patient should continue monthly self-breast exams. A clinical breast exam by your physician is recommended on an annual basis. This exam should not preclude additional follow-up of suspicious palpable abnormalities. Note on Isabela scores and lifetime risk: 1. A Isabela score greater than 3% is considered moderate risk. If this is the case, consider specialist referral to assess eligibility for a risk reducing agent. 2. If overall lifetime risk for the development of breast cancer is 20% or higher, the patient may qualify for future screening with alternating mammogram and breast MRI. Electronically signed and approved by: Jose Alejandro Schuler M.D. Radiologist
== END | disposition home or self-care (01) ==
LOC: RADMAMWWP 16:31
PROVIDERS: ATTEND Family Medicine
DX: Z12.31 Encounter for screening mammogram for malignant neoplasm of breast (principal); Z78.0 Asymptomatic menopausal state
CPT/HCPCS: 77063; 77067

== ENCOUNTER 2022-10-29 14:53 | Emergency (ER) | payer BC ==
[2022-10-29 15:32] VITALS: TEMP 98.2
[2022-10-29 16:35] VITALS: PULSE 76
[2022-10-29 16:37] LABS: Basophils % (A) 0 %; Eosinophils # (A) 0.2 k/uL (0-0.7); Eosinophils % (A) 2 %; HCT 42.4 % (34.0-46.0); HGB 13.9 gm/dL (11.4-16.0); Lymphocytes # (A) 3.5 k/uL (1.0-4.8); Lymphocytes % (A) 33 %; MCH 31.2 pg (25.0-35.0); MCHC 32.9 g/dL (31.0-37.0); MCV 94.7 fL (80.0-100.0); Mean Platelet Volume 7.5; Monocytes # (A) 0.5 k/uL (0-1.0); Monocytes % (A) 5 %; Neutrophils # (A) 6.2 k/uL (1.3-7.7); Neutrophils % (A) 59 %; Platelet Count 341 k/uL (150-450); RBC 4.47 m/uL (3.80-5.40); RDW 12.6 % (11.5-15.5); WBC 10.5 k/uL (3.8-10.6)
[2022-10-29 16:38] LABS: Appearance,Urine Clear (Clear); Bilirubin,Urine Negative (Negative); Blood,Urine Small (Negative); Color,Urine Colorless; Glucose,Urine (UA) Negative (Negative); Ketones,Urine Negative (Negative); Leukocyte Esterase,Urine Negative (Negative); Nitrite,Urine Negative (Negative); Protein,Urine Negative (Negative); RBC,Urine 2 /hpf (0-5); Specific Gravity,Urine 1.002 (1.001-1.035); Squamous Epithelial Cell,Urine <1 /hpf (0-4); Urobilinogen,Urine <2.0 mg/dL (<2.0)
[2022-10-29 16:44] LABS: ALT 16 U/L (4-34); AST 16 U/L (14-36); African American GFR (CKD) >90 (>60 ml/min/1.73 sqM); Albumin 4.5 g/dL (3.5-5.0); Alkaline Phosphatase 94 U/L (38-126); Amylase 98 U/L (30-110); Anion Gap 11 mmol/L; Blood Urea Nitrogen 8 mg/dL (7-17); Carbon Dioxide 24 mmol/L (22-30); Chloride 106 mmol/L (98-107); Glucose 83 mg/dL (74-99); Lipase 240 U/L (23-300); Non-African American GFR(CKD) 88 (>60 ml/min/1.73 sqM); Potassium 3.8 mmol/L (3.5-5.1); Sodium 141 mmol/L (137-145); Total Bilirubin 0.4 mg/dL (0.2-1.3); Total Protein 7.5 g/dL (6.3-8.2)
--- NOTE | 2022-10-29 17:44 | CT ---
EXAMINATION TYPE: CT abdomen pelvis wo con DATE OF EXAM: 10/29/2022 COMPARISON: 12/06/2021 INDICATION: RT sided abdominal/ flank pain DLP: 662.4 mGycm, Automated exposure control for dose reduction was used. CONTRAST: 0 mL of Isovue 300. Study performed without Oral Contrast TECHNIQUE: Axial images were obtained from above the diaphragm to the pubic rami in the axial plane a t 5 mm thick sections. Reconstructed images are reviewed on the computer in the coronal plane. FINDINGS: Limited CT sections are obtained the lung bases. The lung bases are clear. CT ABDOMEN: Liver: Normal Spleen: Normal Pancreas: Normal Adrenal glands: The adrenal glands are normal. Gallbladder: Normal Kidneys: No masses are evident. No hydronephrosis is present. No cysts are present. No renal calci fications identified. Aorta: Vascular calcification is within the aorta. Inferior vena cava: Normal. CT PELVIS: Loops of bowel within the abdomen and pelvis are normal. There are loops of bowel which are incom pletely distended or lack oral contrast limiting their evaluation. Appendix: Normal as visualized. Urinary bladder: Normal. Genitourinary structures: Uterus is unremarkable. Adnexa are normal. No free fluid is within the pelv is. Osseous structures: No suspicious lytic or sclerotic lesions. IMPRESSION: 1. No acute changes CT abdomen pelvis
--- NOTE | 2022-10-29 17:49 | ED ---
General Adult HPI - General Chief complaint: Abdominal Pain Stated complaint: abd pain-sent by PCP Time Seen by Provider: 10/29/22 16:39 Source: patient, RN notes reviewed Mode of arrival: ambulatory - History of Present Illness Initial comments: 62-year-old female presents emergency department chief complaint of abdominal pain 2 weeks. She states that she went to see her primary care provider today who sent her to the ED for further evaluation. She states that the pain is around her bellybutton and moves to the right upper and lower abdomen. She admits to associated nausea. She denies any aggravating or alleviating factors. - Related Data Home Medications Medication Instructions Recorded Confirmed Pantoprazole Sodium [Protonix] 40 mg PO BID 12/26/15 05/08/21 Acetaminophen Tab [Tylenol Tab] 500 mg PO DIRECTED PRN 05/03/21 05/08/21 Aspirin/Acetaminophen/Caffeine 1 each PO DIRECTED PRN 05/03/21 05/08/21 [Excedrin Migraine Caplet] LORazepam [Ativan] 0.5 mg PO TID 05/03/21 05/08/21 Previous Rx's Medication Instructions Recorded Ondansetron [Zofran] 4 mg PO Q8HR PRN #10 tab 10/29/22 Pantoprazole [Protonix] 40 mg PO DAILY #30 tab 10/29/22 Allergies Allergy/AdvReac Type Severity Reaction Status Date / Time No Known Allergies Allergy Verified 10/29/22 15:30 Review of Systems ROS Statement: Those systems with pertinent positive or pertinent negative responses have been documented in the HPI. ROS Other: All systems not noted in ROS Statement are negative. Past Medical History Past Medical History: Hypertension Additional Past Medical History / Comment(s): chronic hip pain History of Any Multi-Drug Resistant Organisms: None Reported Past Surgical History: No Surgical Hx Reported Additional Past Surgical History / Comment(s): COLONOSCOPY, EGD Past Anesthesia/Blood Transfusion Reactions: Postoperative Nausea & Vomiting (PONV) Additional Past Anesthesia/Blood Transfusion Reaction / Comment(s): PONV WITH C- SECTION Past Psychological History: Anxiety Smoking Status: Current every day smoker Past Alcohol Use History: None Reported Past Drug Use History: None Reported - Past Family History Mother Family Medical History: Cancer Additional Family Medical History / Comment(s): pancreatic cancer General Exam Limitations: no limitations General appearance: alert, in no apparent distress Head exam: Present: atraumatic, normocephalic, normal inspection Eye exam: Present: normal appearance, PERRL, EOMI. Absent: scleral icterus, conjunctival injection, periorbital swelling ENT exam: Present: normal exam, mucous membranes moist Neck exam: Present: normal inspection. Absent: tenderness, meningismus, lymphadenopathy Respiratory exam: Present: normal lung sounds bilaterally. Absent: respiratory distress, wheezes, rales, rhonchi, stridor Cardiovascular Exam: Present: regular rate, normal rhythm, normal heart sounds. Absent: systolic murmur, diastolic murmur, rubs, gallop, clicks GI/Abdominal exam: Present: soft, tenderness (Periumbilical, right lower quadrant, right upper quadrant, negative Rovsing's, negative Thomas's). Absent: distended, guarding, rebound, rigid Extremities exam: Present: normal inspection, full ROM, normal capillary refill. Absent: tenderness, pedal edema, joint swelling, calf tenderness Back exam: Present: normal inspection Neurological exam: Present: alert, oriented X3 Psychiatric exam: Present: normal affect, normal mood Skin exam: Present: warm, dry, intact, normal color. Absent: rash Course Vital Signs 10/29/22 10/29/22 10/29/22 15:27 16:34 18:48 Temperature 98.2 F Pulse Rate 83 76 76 Respiratory 18 18 16 Rate Blood Pressure 161/67 171/68 179/90 O2 Sat by Pulse 99 97 95 Oximetry Medical Decision Making - Medical Decision Making Was pt. sent in by a medical professional or institution (, PA, SENIOR REGULATORY AFFAIRS SPECIALIST, urgent care, hospital, or care home...) When possible be specific @ -No Did you speak to anyone other than the patient for history (EMS, parent, family, police, friend...)? What history was obtained from this source @ -No Did you review nursing and triage notes (agree or disagree)? Why? @ -I reviewed and agree with nursing and triage notes Were old charts reviewed (outside hosp., previous admission, EMS record, old EKG, old radiological studies, urgent care reports/EKG's, care home records)? Report findings @ -No old charts were reviewed Differential Diagnosis (chest pain, altered mental status, abdominal pain women, abdominal pain men, vaginal bleeding, weakness, fever, dyspnea, syncope, headache, dizziness, GI bleed, back pain, seizure, CVA, palpatations, mental health, musculoskeletal)? @ -Differential Abdominal Pain Women: Appendicitis, Cholecystitis, diverticulosis, ischemic bowel, pancreatitis, hepatitis, UTI, gastroenteritis, AAA, incarcerated hernia, bowel obstruction, constipation, inflammatory bowel, hepatitis, peptic ulcer disease, splenic infarction, perforated viscus, vulvitis, ovarian torsion, PID, kidney stone, placenta abruption, this is not meant to be an all-inclusive list EKG interpreted by me (3pts min.). @ -EKG at 1544 shows sinus rhythm rate 80, HI 164, QRS 84, QTQTc [id number] X-rays interpreted by me (1pt min.). @ -None done CT interpreted by me (1pt min.). @ -CT abd pelvis shows no evidence of acute process U/S interpreted by me (1pt. min.). @ -None done What testing was considered but not performed or refused? (CT, X-rays, U/S, l abs)? Why? @ -None What meds were considered but not given or refused? Why? @ -None Did you discuss the management of the patient with other professionals (professionals i.e. , PA, SENIOR REGULATORY AFFAIRS SPECIALIST, lab, RT, psych nurse, social service liaison, talent manager, teacher, escrow officer, rifle case repairer)? Give summary @ -No Was smoking cessation discussed for >3mins.? @ -No Was critical care preformed (if so, how long)? @ -No Were there social determinants of health that impacted care today? How? (Homelessness, low income, unemployed, alcoholism, drug addiction, transportation, low edu. Level, literacy, decrease access to med. care, care home, rehab)? @ -No Was there de-escalation of care discussed even if they declined (Discuss DNR or withdrawal of care, Hospice)? DNR status @ -No What co-morbidities impacted this encounter? (DM, HTN, Smoking, COPD, CAD, Cance r, CVA, ARF, Chemo, Hep., AIDS, mental health diagnosis, sleep apnea, morbid obesity)? @ -None Was patient admitted / discharged? Hospital course, mention meds given and route, prescriptions, significant lab abnormalities, going to OR and other pertinent info. @ -Discharged. Patient presented to emergency department chief complaint of right-sided abdominal pain that has been going on for around 2 weeks. She denies any aggravating or alleviating factors. She states that she was sent in by her primary care provider for further evaluation. Laboratory studies are changes which were within normal limits. CT abdomen and pelvis shows no evidence of acute process. Patient advised of findings into continues to follow-up with her primary care provider. Prescription sent in for Protonix and Zofran. Patient is stable at time of discharge. Case discussed my attending, Dr. Hand Undiagnosed new problem with uncertain prognosis? @ -No Drug Therapy requiring intensive monitoring for toxicity (Heparin, Nitro, Insulin, Cardizem)? @ -No Were any procedures done? @ -No Diagnosis/symptom? @ -Abdominal pain Acute, or Chronic, or Acute on Chronic? @ -Acute Uncomplicated (without systemic symptoms) or Complicated (systemic symptoms)? @ -uncomplicated Side effects of treatment? @ -No Exacerbation, Progression, or Severe Exacerbation? @ -No Poses a threat to life or bodily function? How? (Chest pain, [place], [place], pneumonia, PE, COPD, DKA, ARF, appy, cholecystitis, CVA, Diverticulitis, Homicidal, Suicidal, threat to staff... and all critical care pts) @ -No - Lab Data Result diagrams: 10/29/22 15:41 10/29/22 15:41 Lab Results 10/29/22 10/29/22 10/29/22 Range/Units 15:41 15:41 15:41 WBC 10.5 (3.8-10.6) k/uL RBC 4.47 (3.80-5.40) m/uL Hgb 13.9 (11.4-16.0) gm/dL Hct 42.4 (34.0-46.0) % MCV 94.7 (80.0-100.0) fL MCH 31.2 (25.0-35.0) pg MCHC 32.9 (31.0-37.0) g/dL RDW 12.6 (11.5-15.5) % Plt Count 341 (150-450) k/uL MPV 7.5 Neutrophils % 59 % Lymphocytes % 33 % Monocytes % 5 % Eosinophils % 2 % Basophils % 0 % Neutrophils # 6.2 (1.3-7.7) k/uL Lymphocytes # 3.5 (1.0-4.8) k/uL Monocytes # 0.5 (0-1.0) k/uL Eosinophils # 0.2 (0-0.7) k/uL Basophils # 0.0 (0-0.2) k/uL Sodium 141 (137-145) mmol/L Potassium 3.8 (3.5-5.1) mmol/L Chloride 106 (98-107) mmol/L Carbon Dioxide 24 (22-30) mmol/L Anion Gap 11 mmol/L BUN 8 (7-17) mg/dL Creatinine 0.73 (0.52-1.04) mg/dL Est GFR (CKD-EPI)AfAm >90 (>60 ml/min/1.73 sqM) Est GFR (CKD-EPI)NonAf 88 (>60 ml/min/1.73 sqM) Glucose 83 (74-99) mg/dL Calcium 10.0 (8.4-10.2) mg/dL Total Bilirubin 0.4 (0.2-1.3) mg/dL AST 16 (14-36) U/L ALT 16 (4-34) U/L Alkaline Phosphatase 94 (38-126) U/L Total Protein 7.5 (6.3-8.2) g/dL Albumin 4.5 (3.5-5.0) g/dL Amylase 98 (30-110) U/L Lipase 240 (23-300) U/L Urine Color Colorless Urine Appearance Clear (Clear) Urine pH 6.0 (5.0-8.0) Ur Specific [place] 1.002 (1.001-1.035) Urine Protein Negative (Negative) Urine Glucose (UA) Negative (Negative) Urine Ketones Negative (Negative) Urine Blood Small H (Negative) Urine Nitrite Negative (Negative) Urine Bilirubin Negative (Negative) Urine Urobilinogen <2.0 (<2.0) mg/dL Ur Leukocyte Esterase Negative (Negative) Urine RBC 2 (0-5) /hpf Ur Squamous Epith Cells <1 (0-4) /hpf Disposition Clinical Impression: Abdominal pain Disposition: HOME SELF-CARE Condition: Stable Instructions (If sedation given, give patient instructions): Abdominal Pain (ED) Additional Instructions: Please follow up with your primary care provider. Return to the emergency department for new or worsening symptoms. Prescriptions: Pantoprazole [Protonix] 40 mg PO DAILY #30 tab Ondansetron [Zofran] 4 mg PO Q8HR PRN #10 tab PRN Reason: Nausea Is patient prescribed a controlled substance at d/c from ED?: No Referrals: Michael Marin MD [Primary Care Provider] - 1-2 days
[2022-10-29] MEDS ORDERED: MAG HYDROX/AL HYDROX/SIMETH 30 ML, HYOSCYAMINE ELIXIR 10 ML, LIDOCAINE 2% GLYDO JELLY 1... PO STA ×3 (18:22)
[2022-10-29] MEDS ORDERED: ONDANSETRON ODT 4 MG TAB PO STA (18:32)
[2022-10-29] MEDS ORDERED: KETOROLAC 15 MG/ML 1 ML VIAL IM STA (18:32)
[2022-10-29 18:49] VITALS: BP 179/90; RESP 16
== END 2022-10-29 18:56 | disposition home or self-care (01) ==
LOC: EC 14:53
DX: R10.9 Unspecified abdominal pain (principal); I10 Essential (primary) hypertension; F41.9 Anxiety disorder, unspecified; F17.200 Nicotine dependence, unspecified, uncomplicated; Z79.899 Other long term (current) drug therapy; Z79.82 Long term (current) use of aspirin
CPT/HCPCS: 36415; 93005; 80053; 82150; 83690; 85025; 81001; 74176; 99284; 96372; J1885

== ENCOUNTER → 2023-09-01 | Outpatient (CLI) | payer BC ==
--- NOTE | 2023-09-01 12:31 | XR ---
EXAMINATION TYPE: XR chest 2V DATE OF EXAM: 09/01/2023 COMPARISON: NONE TECHNIQUE: PA and lateral views submitted. HISTORY: Cough FINDINGS: The lungs are clear and there is no pneumothorax, pleural effusion, or focal pneumonia. Heart size normal and no overt failure. Osseous structures demonstrate hypertrophic and degenerative changes of the spine. AC joint arthropathy. IMPRESSION: 1. No acute process.
== END | disposition home or self-care (01) ==
LOC: RADXRMAIN 12:16
PROVIDERS: ATTEND Nurse Practitioner Family
DX: J18.9 Pneumonia, unspecified organism (principal)
CPT/HCPCS: 71046